=== PATIENT | female | born 1975 | race Caucasian/White ===

== ENCOUNTER 2016-09-18 12:09 | Emergency (ER) | payer BC, OTHER ==
[2016-09-18 12:23] VITALS: BP 165/91
[2016-09-18] MEDS ORDERED: HYDROmorphone 1 MG/ML CARPUJECT IM STA (12:30)
[2016-09-18] MEDS ORDERED: ONDANSETRON ODT 4 MG TABLET TL STA (12:30)
[2016-09-18] MEDS ORDERED: HYDROmorphone 1 MG/ML CARPUJECT ONE (12:36)
[2016-09-18] MEDS ORDERED: ONDANSETRON ODT 4 MG TABLET ONE (12:36)
--- NOTE | 2016-09-18 13:19 | XRAY Preliminary Report ---
Exam: XR Hand 3 View LT IMPRESSION: Fractures of the third middle and distal phalanges, fourth distal phalangeal tuft, and eq uivocally fourth middle phalanx. [facility] SITE ID: [id number]
--- NOTE | 2016-09-18 13:34 | ED Physician Documentation ---
PD HPI UPPER EXT INJURY - Stated complaint Stated Complaint: L HAND INJ - Chief complaint Chief Complaint: Ext Problem - History obtained from History obtained from: Patient, Family - History of Present Illness Location: Left, Hand (middle and ring fingers) Type of injury: Crush Where injury occurred: Home Timing - onset: Today Timing - duration: Hours Timing - details: Abrupt onset, Still present Improved by: Rest, Ice, Immobilization Worsened by: Moving, Palpating Associated symptoms: Swelling, Discolored. 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 She has a lot of swelling and pain. Review of Systems Constitutional: denies: Fever Eyes: denies: Decreased vision Ears: denies: Ear pain Nose: denies: Congestion Respiratory: denies: Cough GI: denies: Vomiting : denies: Dysuria, Frequency Musculoskeletal: reports: Extremity pain, Joint pain, Extremity swelling, Joint swelling. denies: Neck pain, Back pain Neurologic: denies: Generalized weakness, Focal weakness, Numbness PD PAST MEDICAL HISTORY - Past Surgical History Past Surgical History: No - Present Medications Home Medications: Ambulatory Orders Medication Instructions Recorded Confirmed Epinephrine [Epipen 2-Kevin] 0.3 mg IJ ONCE PRN #1 ml 09/20/13 predniSONE [Deltasone] 40 mg PO DAILY 3 Days 09/20/13 HYDROcod/ACETAM 5/325 [[place] 5/325] 1 - 2 ea PO Q6H PRN #15 tablet 09/18/16 - Allergies Allergies/Adverse Reactions: Allergies Allergy/AdvReac Type Severity Reaction Status Date / Time beeswax AdvReac Itching Verified 09/18/16 12:23 cephalexin [Cephalexin] AdvReac Respiratory Verified 09/18/16 12:23 - Social History Does the pt smoke?: No Smoking Status: Never smoker - Immunizations Immunizations are current?: Yes PD ED PE NORMAL - Vitals Vital signs reviewed: Yes (hypertensive) - General General: Well developed/nourished, Other (appears to be acutely in pain ) - HEENT HEENT: Atraumatic, PERRL - Respiratory Respiratory: No respiratory distress - Derm Derm: Normal color, Warm and dry, No rash - Extremities Extremities: Other (There is swelling and tenderness to the 4th and 5th digits distally without subungal hematoma. ) - Neuro Neuro: No motor deficit, No sensory deficit - Psych Psych: Normal mood, Normal affect Results - Vitals Vitals: Vital Signs - 24 hr 09/18/16 12:20 Temperature 36.7 C Heart Rate 85 Respiratory 18 Rate Blood Pressure 165/91 H O2 Saturation 100 Oxygen O2 Source Room air - Rads (name of study) Left hand Radiology: Prelim report reviewed (Impression: Fractures of the third middle and distal phalanges, fourth distal phalange phalangeal tuft and equivocally fourth middle phalanx.), EMP read indepedently, See rad report Procedures - Splint (location) Left fingers Splint applied by: Tech Type of splint: Metal foam finger splint Other: Patient tolerated well, No complications, Neurovascular intact, Good alignment PD MEDICAL DECISION MAKING - ED course Complexity details: reviewed results, re-evaluated patient, considered differential, d/w patient, d/w family ED course: 41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 Her fingers are placed into a splint and she is prescribed a limited amount of a pain medication. Departure - Departure Disposition: 01 Home, Self Care Clinical Impression: Fracture, finger, multiple sites Crushing injury of finger(s) Qualifiers: Encounter type: initial encounter Qualified Code(s): S67.10XA - Crushing injury of unspecified finger(s), initial encounter Condition: Stable Instructions: ED Fx Finger Closed, ED Contusion Finger Follow-Up: Cathy Le MD [Primary Care Provider] - [facility] [Provider Group] Prescriptions: HYDROcod/ACETAM 5/325 [[place] 5/325] 1 - 2 ea PO Q6H PRN #15 tablet PRN Reason: Pain
--- NOTE | 2016-09-18 13:51 | XRAY Report ---
EXAM: LEFT HAND RADIOGRAPHY EXAM DATE: 09/18/2016 12:42 PM. CLINICAL HISTORY: Pain after a log splitter struck the third and fourth fingers. COMPARISON: None. TECHNIQUE: 3 views. FINDINGS: Bones: Acute hairline fracture extending through the fourth distal phalangeal tuft. Equivocal hairline fracture through the distal metaphysis fourth middle phalanx. Acute comminuted minimally displaced fracture involving the entirety of the third distal phalanx with 2 mm maximum offset, without angulation. This extends to the proximal articulating cortex. Acute nondisplaced oblique fracture distal metadiaphysis third middle phalanx. Joints: Normal. No subluxations. Soft Tissues: Edema at the fracture sites. No soft tissue avulsion. No radiopaque foreign body. IMPRESSION: Fractures of the third middle and distal phalanges, fourth distal phalangeal tuft, and eq uivocally fourth middle phalanx. [facility] Referring Provider Line: [phone] SITE ID: [id number]
== END 2016-09-18 15:08 | disposition home or self-care (01) ==
LOC: ED 12:09
DX: S62.623A Displaced fracture of middle phalanx of left middle finger, initial encounter for closed fracture (principal); S62.625A Displaced fracture of middle phalanx of left ring finger, initial encounter for closed fracture; S62.633A Displaced fracture of distal phalanx of left middle finger, initial encounter for closed fracture; S62.635A Displaced fracture of distal phalanx of left ring finger, initial encounter for closed fracture; W23.1XXA Caught, crushed, jammed, or pinched between stationary objects, initial encounter; Y92.019 Unspecified place in single-family (private) house as the place of occurrence of the external cause
CPT/HCPCS: 29130; 73130; 96372; 99282; 99283; J1170; Q0162

== ENCOUNTER 2017-04-29 15:26 | Outpatient (CLI) | payer BC ==
--- NOTE | 2017-04-30 10:57 | XRAY Report ---
THREE VIEW RIGHT KNEE: 04/29/2017 CLINICAL INDICATION: Pain. FINDINGS: AP, lateral, sunrise views of the right knee demonstrate no evidence of fracture or dislocation. The joint spaces are preserved. No radiopaque foreign body is seen in the soft tissues. IMPRESSION: NORMAL RIGHT KNEE. TD: 04/30/2017 10:56
--- NOTE | 2017-04-30 10:58 | XRAY Report ---
TWO VIEW RIGHT LOWER LE04/29/2017 CLINICAL INDICATION: Pain. FINDINGS: Frontal and lateral views of the right lower leg demonstrate no evidence of fracture. No radiopaque foreign body is seen in the soft tissues. IMPRESSION: NORMAL RIGHT LOWER LEG. TD: 04/30/2017 10:57
--- NOTE | 2017-04-30 10:59 | XRAY Report ---
THREE VIEW RIGHT ANKLE: 04/29/2017 CLINICAL INDICATION: Pain. FINDINGS: AP, lateral, and oblique views of the right ankle demonstrate no evidence of fracture. Posterior calcaneal spurring is present. Medial soft tissue swelling is seen. No effusion is present. IMPRESSION: SOFT TISSUE SWELLING. NO EVIDENCE OF FRACTURE. POSTERIOR CALCANEAL SPURRING. TD: 04/30/2017 10:58
== END 2017-04-29 15:27 | disposition home or self-care (01) ==
LOC: DI 15:26
PROVIDERS: ATTEND Physician Assistant
DX: M25.561 Pain in right knee (principal); M79.661 Pain in right lower leg; M25.571 Pain in right ankle and joints of right foot; R22.41 Localized swelling, mass and lump, right lower limb